=== PATIENT | female | born 2000 | race African-American/Black ===

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

== ENCOUNTER 2018-06-28 00:10 | Emergency (ER) | payer OTHER ==
[~2018-06-28] VITALS: Ht 160 cm; Wt 75.4 kg
[2018-06-28 00:43] VITALS: BP 138/94
== END 2018-06-28 01:56 | disposition left against medical advice (07) ==
LOC: ER 00:10
DX: R11.10 Vomiting, unspecified (principal); R51 Headache; Z53.21 Procedure and treatment not carried out due to patient leaving prior to being seen by health care provider

== ENCOUNTER 2019-01-11 22:09 | Emergency (ER) | payer OTHER ==
[~2019-01-11] VITALS: Ht 162.6 cm; Wt 75.0 kg
[2019-01-12] MEDS ORDERED: LIDOCAINE 1%/EPI 1:100,000 10 ML VIAL IJ ONE (04:30)
[2019-01-12] MEDS ORDERED: IBUPROFEN 600MG TABLET PO ONE (04:30)
[2019-01-12] MEDS ORDERED: BACITRACIN ZINC OINT UDPKT TOP ONE (04:30)
[2019-01-12] MEDS ORDERED: LIDOCAINE HCL/PF 1% 10 MG/ML 5ML VIAL IJ ONE (05:30)
[2019-01-12 06:30] VITALS: BP 125/72
== END 2019-01-12 06:43 | disposition home or self-care (01) ==
LOC: ER 22:09
DX: S71.112A Laceration without foreign body, left thigh, initial encounter (principal); S71.111A Laceration without foreign body, right thigh, initial encounter; X58.XXXA Exposure to other specified factors, initial encounter; Y93.89 Activity, other specified; Y92.89 Other specified places as the place of occurrence of the external cause; Y99.8 Other external cause status
CPT/HCPCS: 12004; 99283; J3490; Z7610

== ENCOUNTER 2019-02-01 17:06 | Emergency (ER) | payer SELFPAY ==
[~2019-02-01] VITALS: Ht 162.6 cm; Wt 65.0 kg
[2019-02-01 17:55] VITALS: BP 127/64
== END 2019-02-01 18:28 | disposition home or self-care (01) ==
LOC: ER 18:11
DX: Z48.02 Encounter for removal of sutures (principal)
CPT/HCPCS: 99281

== ENCOUNTER 2019-10-14 14:19 | Emergency (ER) | payer MEDICAID ==
[~2019-10-14] VITALS: Ht 160 cm; Wt 70.0 kg
[2019-10-14] MEDS ORDERED: ACETAMINOPHEN 325MG TABLET PO ONE (16:45)
[2019-10-14 17:03] LABS: BASOPHILS % 0.5 % (0.0-2.0); EOSINOPHILS % 0.1 % (0.0-5.0); HEMATOCRIT. 38.8 % (36.0-48.0); HEMOGLOBIN. 13.1 g/dL (12.0-16.0); LYMPHOCYTES % 18.6 % (20.0-50.0); MEAN CORPUSCULAR HEMOGLOBIN 30.3 pg (28.0-32.0); MEAN CORPUSCULAR VOLUME 89.7 fL (81.0-99.0); MONOCYTES % 5.5 % (2.0-8.0); NEUTROPHILS % 75.3 % (40.0-76.0); PLATELET 290 x1000/uL (130-400); RED BLOOD CELL COUNT 4.32 mill/uL (4.2-5.4); RED CELL DISTRIBUTION WIDTH 13.1 % (11.6-14.6)
[2019-10-14 17:04] LABS: CLARITY URINE CLOUDY (CLEAR); COLOR URINE YELLOW (YELLOW); KETONES URINE 1+ (NEGATIVE); LEUKOCYTE ESTERASE URINE TRACE (NEGATIVE); NITRITE URINE NEGATIVE (NEGATIVE); OCCULT BLOOD URINE NEGATIVE (NEGATIVE); PH URINE 7.5 (4.5-8.0); PROTEIN URINE 1+ (NEGATIVE); SPECIFIC GRAVITY URINE 1.017 (1.005-1.030)
[2019-10-14 17:06] LABS: CHLORIDE 111 mEq/L (98-107)
[2019-10-14 17:29] LABS: B-HCG QUANTITATIVE 158162 mIU/mL (<3)
[2019-10-14 18:00] VITALS: BP 112/57
[2019-10-14] MEDS ORDERED: ACETAMINOPHEN 650MG/20.3ML UDC PO ONE (18:15)
== END 2019-10-14 19:00 | disposition home or self-care (01) ==
LOC: ER 14:19
DX: O26.891 Other specified pregnancy related conditions, first trimester (principal); S93.692A Other sprain of left foot, initial encounter; S80.11XA Contusion of right lower leg, initial encounter; Y08.89XA Assault by other specified means, initial encounter; Y93.89 Activity, other specified; Y92.89 Other specified places as the place of occurrence of the external cause; Y99.8 Other external cause status; Z3A.10 10 weeks gestation of pregnancy
CPT/HCPCS: 36415; 73590; 73630; 76801; 80053; 81003; 81025; 84702; 85025; 99285